=== PATIENT | male | born 1995 | race Asian ===

== ENCOUNTER → 2017-08-23 | Outpatient (CLI) | payer OTHER ==
[~2017-08-23] MED LIST: CODCAP4 PO; MULT-884 PO
--- NOTE | 2017-08-24 06:40 | PAP/PSG TECHNICIAN REPORT ---
[facility] Test Engineer Nuclear Equipment Polysomnogram Report Study name: None Report date: 08/24/2017 Study date: 08/23/2017 Referring Physician: Joana Aleman PA-C Name: HILTON MATOS Interpreting Physician: Mikael Corral D.O. Date of : 1995 Test Engineer Nuclear Equipment: Lucy Bashir [facility]. Sex: Male Age: 22 Study Type: PSG Weight: 172 lbs Height: 22 years, Height 5' 1" BMI: 32.5 Medications: NONE REPORTED Patient History 22 yr-old male here for a baseline study. He has a history of daytime sleepiness, weight gain, and complaints of loud snoring from his roommates. His [place] scale is 18. The test was started on room air. ETCO2 testing was not utilized during this study. Room 3 Parameters Monitored NPSG: E1-M2, E2-M1, Fp1-M2, Fp2-M1, F3-M2, F4-M2, F4-M1, C3-M2, C4-M2, C4-M1, O1-M2, O2-M2, O2-M1, T3-M2, T4-M1, P3-M2, P4-M1, CHIN1, CHIN2, HR, EKG, Legs, PFLOW, SNOR, FLOW, CFLOW, Tidal Volume, THOR, ABDO, SpO2, PLTH, CPRESS, ETCO2 Wave, ETCO2, pH Sleep Architecture Sleep Stages Time at Lights Off 11:03:49 PM STAGES Time (min.) TST (%) Time at Lights On 5:31:19 AM Wake 38.5 -- Total Recording Time (TRT) 387.50 min. N1 20.0 6 Total Sleep Period (TSP) 377.0 min. N2 200.0 57 Total Sleep Time (TST) 349.0min. N3 40.0 11 Awake Time 38.5 min. REM 89.0 26 Wake after Sleep Onset 28.0 min. Sleep Efficiency (SE) 90 % Sleep Onset Latency (SULEIMAN) 10.5 min. Number of Stage 1 Shifts None Awakenings 10 Stage Changes 41 Number of REM periods 3 REM 89.0 26 REM Latency 118.5 min. NREM 260.0 74 Body Position Analysis Supine Right Left Side Prone Vertical Total Sleep Time (min.) 319.7 33.0 1.0 34.00 0.0 0.0 Total Sleep Time (%) 90% 9% 0% 10 0% N/A% Total Sleep Time REM (min.) 89.0 0.0 0.0 None 0.0 0.0 Total Sleep Time NREM (min.) 226.0 33.0 1.0 None 0.0 0.0 Intermittent Wake (min.) 4.7 27.4 6.4 None 0.0 0.0 Total Sleep Period (%) 85% None None None None None Arousals Myoclonus (PLM) * Events Count Index Events Count Index Spontaneous 24 4 Events Awake (PLMW) 86 134.0 Respiratory 7 1.2 Events Asleep w/ Arousal (PLMA) 10 1.7 PLM 10 2 Events Asleep w/o Arousal (PLMS) 46 7.9 Snoring 2 0 Total Asleep 56 9.6 Total 43 7 Total 142 22 Respiratory Analysis * CA OA MA CH H RERA Total Count 0 5 0 0 136 3 141 Index 0.0 0.9 0.0 0 23.4 1 24.8 Mean Duration 0.0 15.1 0.0 0.00 17.3 18.7 17.3 Longest Duration 0.0 17.6 0.0 0.00 0.0 20.5 35.3 Respiratory Event Summary Total Supine ~Supine Right Left Prone REM NREM Apneas Count 5 5 0 0 0 N/A 5 0 Index 0.9 1 0 0.0 0.0 N/A 3 0 Hypopneas (4% Desat) Count 136 132 4 4 0 N/A 95 41 Index 23.4 25.1 7 7.3 0.0 N/A 64.0 9.5 Apneas & All Hypopneas Count 141 137 4 4 0 N/A 100 41 Index 24.2 26 7 7 0 N/A 67.4 9.5 Respiratory Events (Teaching Young+All Hyp+RERA) Count 141 139 5 5 0 N/A 100 41 Index 24.8 26 9 9.1 0.0 N/A 67.4 10.2 Respiratory Related Arousal Count 7 139 3 3 0 N/A 0 7 Index 1.2 1 5 5 0 N/A 0 2 Snoring Analysis Supine Right Left Prone REM NREM Total Snore duration 4.3 min Snores count 177 38 2 N/A 25 192 217 Snore mean duration 1.2 Sec Snores index 34 69 120 N/A 16.9 44.3 37.3 TST with snoring (%) 1.2% Desaturation Event Summary: Minimum %SpO2 Event Count Mean/Min/Max Duration(sec.) Desaturation Index % Time In Bed > 90 180 19.4 / 5.3 / 60.0 30.1 92.6 86 - 90 5 6.7 / 4.0 / 9.0 13.4 5.8 81 - 85 1 4.0 / 4.0 / 4.0 12.3 1.3 76 - 80 0 N/A 0.0 0.3 71 - 75 0 N/A 0.0 0.1 66 - 70 0 N/A 0.0 0.0 61 - 65 0 N/A 0.0 0.0 56 - 60 0 N/A 0.0 0.0 51 - 55 0 N/A 0.0 0.0 < 50 0 N/A 0.0 0.0 Total REM NREM Awake <50% 0.0 min. 0.0 min. 0.0 min. 0.0 min. 51 - 60% 0.0 min. 0.0 min. 0.0 min. 0.0 min. 61 - 70% 0.0 min. 0.0 min. 0.0 min. 0.0 min. 71 - 80% 1.4 min. 1.4 min. 0.0 min. 0.0 min. 81 - 90% 27.2 min. 20.3 min. 6.7 min. 0.2 min. 91 - 100% 358.8 min. 67.3 min. 253.3 min. 38.2 min. Average 93 92 93 94 Minimum SpO2 71 71 84 90 Desaturation Event Index 28.0 74.2 15.0 9.4 # Desat. Events below 89% 77 62 15 N/A Time(%) with Saturation below 89% 3.7 3.3 0.4 0.0 Time(min.) with Saturation below 89% 14.2 12.6 1.6 0.0 Time (mins) REM (mins) NREM (mins) % of TST SpO2 Below 90% 129 92 N37 5.4 SpO2 Below 88% 25 0 0 3 Heart Rate Analysis Min (bpm) Max (bpm) Average (bpm) Awake 60 109 76 NREM 49 104 64 REM 48 93 60 Overall 48 104 63 Supplemental O2 Values Minimum O2 level: None Value Start Time End Time Test Engineer Nuclear Equipment Comments Mr. Hilton Ames slept in the right, left, and supine positions. No cardiac arrhythmias or PLMs noted. No bruxism noted. Snoring was noted and scored as a 3-4 on a scale of 1 through 5. (0=no snoring, 5=snoring loud enough to be heard through a closed door or down the dias way). He did not wake up to use the restroom during the night. Mr. Hilton Ames stated that he slept about the same as usual. The final report will be interpreted and signed by a sleep physician. The completed physician report will then be placed in the patient medical record. Therapy (cm H2O) 0 TIB (min.) 387.5 TST (min.) 349.0 Sleep Onset (min.) 10.5 REM Onset From Sleep (min.) 118.5 Sleep Efficiency % 90 Wakefulness (%) 10 Wakefulness (min.) 38.5 NREM 1 (%) 6 NREM 1 (min.) 20.0 NREM 2 (%) 57 NREM 2 (min.) 200.0 NREM 3 (%) 11 NREM 3 (min.) 40.0 REM (%) 26 REM (min.) 89.0 # Arousals 43 Arousal Index 7 # Snore 217 Snore Index 37.3 AHI 24.2 AHI Supine 26 AHI Non-Supine 7 NREM AHI 9.5 REM AHI 67.4 RDI 24.8 # Obstructive Apnea 5 # Central Apnea 0 # Mixed Apnea 0 # Hypopneas 136 RERAs 3 Total Respiratory Events 144 Time Below SpO2 89% (min.) 14.2 Mean NREM SpO2 (%) 93 Mean REM SpO2 (%) 92 Mean Sleep SpO2 (%) 93 Min NREM SpO2 (%) 84 Min REM SpO2 (%) 71 Position Supine (min.) 319.7 Position Non-supine (min.) 34.0 LM Index Sleep 9.6 LM Index NREM 10.8 LM Index REM 6.1 Mean Heart Rate (bpm) 63 Min Heart Rate (bpm) 48
--- NOTE | 2017-08-28 08:40 | Sleep Study ---
Sleep Study Report Date of Service: 08/23/2017 Sleep Study Report Clinical data: The patient is a 22-year-old male with a history of snoring and excessive daytime somnolence. His [place] score is 18 out of a possible 24. His BMI is elevated at 32.5. This was an in-lab overnight polysomnography Sleep architecture: The total sleep period was 377 minutes. The total sleep time was 349 minutes. The sleep efficiency was 90 percent. Sleep latency was 10.5 minutes. Wake after sleep onset was 28 minutes. The REM latency was top normal at 118.5 minutes. There were 3 REM periods during the night. Sleep consisted of stage N1 6 percent, stage N2 57 percent, stage N3 11 percent , stage REM 26 percent. Arousal data: The patient had a total of 43 arousals including 24 spontaneous arousals, 7 respiratory arousals, 10 PLM arousals, and 2 snoring arousals. The arousal index was 7. PLM data: The patient had a total of 56 periodic limb movements of sleep for a PLM index of 9.6. There were 10 arousals associated with limb movements for a PLM arousal index of 1.7. EKG: The underlying cardiac rhythm was normal sinus. The cardiac rates 48-104 beats per minute. No arrhythmias were noted. Respiratory data: The patient had a total of 141 respiratory events including 5 obstructive apneas and 136 hypopneas. Hypopneas were scored according to the 4 percent desaturation rule. There were also 3 RERAs. The longest apnea was 17.6 seconds. The mean duration of the hypopneas was 17.3 seconds. The apnea- hypopnea index was elevated at 24.2 events per hour. This represents moderate obstructive sleep apnea. Oximetry data: The average saturation for the night was 93 percent. The minimum saturation was 71 percent. This did occur during REM sleep. There was a total of 14.2 minutes with saturations less than 89 percent. Creative Art Director comments: The patient slept on the right, left, and supine positions. No cardiac arrhythmias noted. No bruxism noted. Snoring was noted and scored as a 3-4 on a scale of 1 through 5. He did not wake up to use the restroom during the night. Impressions: 1. Moderate obstructive sleep apnea Comments: Patient had a normal sleep efficiency and sleep architecture. He did however have moderate sleep apnea with an apnea-hypopnea index of 24.2. There was a significant increase in the frequency of events during REM sleep. The REM apnea -hypopnea index was 67.4. It was during REM sleep that he was having the oxygen desaturations. A split study could not be done as the patient had the majority of the events in the 2nd half of the night. Patient has significant symptoms and treatment is indicated. Recommendations: 1. It is advised that the patient be treated with nasal CPAP therapy. This could be accomplished by referral back to the Sleep Lab for a CPAP titration study. Alternatively he could be treated with auto CPAP. 2. The patient has an elevated body mass index of 32.5. Weight loss is advised. 3. The patient should be advised to avoid sleeping in the supine position. 4. The patient should be advised the appropriate principles of sleep hygiene including having a regular sleep-wake schedule and allowing sufficient sleep time of approximately 7.5 hours or more during the night. Copies To 1: Mikael Corral DO; Joana Aleman PA
== END | disposition home or self-care (01) ==
LOC: C.NEUR 21:00
PROVIDERS: ATTEND Physician Assistant
DX: G47.33 Obstructive sleep apnea (adult) (pediatric) (principal)